=== PATIENT | female | born 1965 | race African-American/Black ===

== ENCOUNTER 2019-04-29 16:13 | Outpatient (CLI) | payer OTHER, SELFPAY ==
--- NOTE | ~2019-04-29 | MM_ITS ---
EXAMINATION: MM screening stormy BI w giovanni HISTORY: Screening mammogram TECHNIQUE: Craniocaudal and mediolateral oblique 3-D tomosynthesis images were obtained and synthetic 2-D images were generated. CAD analysis was submitted and interpreted. COMPARISON: No prior mammogram is available for comparison at this institution. BREAST PARENCHYMAL COMPOSITION: There are scattered areas of fibroglandular density. FINDINGS: RIGHT BREAST: There is a possible mass in the subareolar aspect of the breast. LEFT BREAST: A mass is present in the middle/posterior third of the upper outer quadrant of the breas t 8.5 cm from the nipple. On the craniocaudal view, there is an adjacent asymmetry. IMPRESSION: 1. Bilateral breast findings as described above. 2. Additional mammographic views and possible breast ultrasound are recommended. BI-RADS Category 0: Incomplete: Needs additional imaging evaluation. Reviewed, dictated and finalized at location A. GER RECRUITING IMPRESSION: 1. Bilateral breast findings as described above. 2. Additional mammographic views and possible breast ultrasound are recommended . BI-RADS Category 0: Incomplete: Needs additional imaging evaluation.
== END 2019-04-29 16:14 | disposition home or self-care (01) ==
LOC: ANHIMG 16:28
PROVIDERS: PCP Physician Assistant; Visit Provider Physician Assistant
DX: Z12.31 Encounter for screening mammogram for malignant neoplasm of breast (principal); R92.8 Other abnormal and inconclusive findings on diagnostic imaging of breast
CPT/HCPCS: 77063; 77067

== ENCOUNTER 2019-05-24 12:40 | Outpatient (CLI) | payer OTHER, SELFPAY ==
--- NOTE | ~2019-05-24 | MMUS_ITS ---
EXAMINATION: MM diagnostic mammo BI, US breast BI limited HISTORY: Follow-up breast asymmetries TECHNIQUE: Additional 3-D tomosynthesis images of the breasts were performed and synthetic 2-D images were generated. CAD analysis was submitted and interpreted. High resolution bilateral breast ultraso und was performed. COMPARISON: 04/29/2019 FINDINGS: MAMMOGRAPHIC FINDINGS: Breast composed of scattered areas of fibroglandular density. There are no suspicious masses, calcifi cations or architectural distortion in the right breast to suggest malignancy. There is a mass measur ing 1.5 cm with circumscribed margins in the upper outer quadrant of the left breast. There are assoc iated calcifications. ULTRASOUND: Right breast ultrasound: In the subareolar location of the right breast there is an irregular shaped hypoechoic mass with helder e angular margins measuring 12 x 7 x 8 mm. There is mixed posterior attenuation. No internal vascular ity. Left breast ultrasound: At 12:00, 2 cm from the nipple, there is an oval hypoechoic mass measuring 4 x 3 x 3 mm, likely a marysol ign complicated cyst. In the subareolar location of the left breast there is an oval hypoechoic mass with circumscribed margins, parallel orientation, no significant posterior features or internal vascu larity measuring 7 x 7 x 4 mm, likely benign. IMPRESSION: 1. Irregular shaped 12 mm right breast mass in the subareolar location. Ultrasound-guided right breas t biopsy recommended. BI-RADS Category 4. 2. Probable benign left breast masses no definite sonographic correlate to mammographic abnormality i n the left breast. Six-month follow-up diagnostic left mammogram and ultrasound recommended. BI-RADS Category 3, likely benign. Reviewed, dictated and finalized at location A. IMPRESSION: 1. Irregular shaped 12 mm right breast mass in the subareolar location. Ultraso und-guided right breast biopsy recommended. BI-RADS Category 4. 2. Probable benign left breast masses no definite sonographic correlate to mamm ographic abnormality in the left breast. Six-month follow-up diagnostic left ma mmogram and ultrasound recommended. BI-RADS Category 3, likely benign.
== END 2019-05-24 12:41 | disposition home or self-care (01) ==
LOC: ANHIMG 12:43
PROVIDERS: PCP Physician Assistant; Visit Provider Physician Assistant
DX: R92.8 Other abnormal and inconclusive findings on diagnostic imaging of breast (principal)
CPT/HCPCS: 76642; 77066

== ENCOUNTER 2023-05-15 22:15 | Emergency (ER) | payer SELFPAY ==
[2023-05-15 22:18] VITALS: BP 131/103; PULSE 79; RESP 16; TEMP 36.1; O2SAT 98
--- NOTE | 2023-05-16 00:32 | PC.NURSE ---
Pt LWBS due to wait. Pt educated on risks/benefits of leaving. Pt instructed by this RN to follow up w pcp or come back if sx worsen.
== END 2023-05-16 01:20 | disposition left against medical advice (07) ==
PROVIDERS: PCP Physician Assistant
DX: I10 Essential (primary) hypertension (principal)
CPT/HCPCS: 99199

== ENCOUNTER 2023-11-21 09:50 | Outpatient (CLI) | payer BC, SELFPAY ==
--- NOTE | ~2023-11-21 | MM_ITS ---
EXAMINATION: MM screening stormy BI w giovanni HISTORY: Screening mammogram TECHNIQUE: Craniocaudal and mediolateral oblique 3-D tomosynthesis images were obtained and synthetic 2-D images were generated. CAD analysis was submitted and interpreted. COMPARISON: 04/29/2019 BREAST PARENCHYMAL COMPOSITION:Not Dense. There are scattered areas of fibroglandular density. FINDINGS: Stable mass with focal calcifications at the upper, outer left breast. Stable additional be nign lymph node at the posterior upper, outer left breast. No suspicious mass, calcification, or arch itectural distortion are identified in either breast to suggest malignancy. There has been no suspici ous interval change. IMPRESSION: No mammographic evidence of malignancy. Recommend routine screening mammography in one year. BI-RADS Category 2: Benign finding(s). Reviewed, dictated and finalized at [facility].
== END 2023-11-21 09:51 | disposition home or self-care (01) ==
LOC: ANHIMG 09:53
PROVIDERS: PCP Physician Assistant; Visit Provider Physician Assistant
DX: Z12.31 Encounter for screening mammogram for malignant neoplasm of breast (principal)
CPT/HCPCS: 77063; 77067

== ENCOUNTER 2025-02-04 10:39 | Outpatient (CLI) | payer BC, SELFPAY ==
--- NOTE | ~2025-02-04 | MM_ITS ---
EXAMINATION: MM screening stormy BI w giovanni HISTORY: Screening. TECHNIQUE: Craniocaudal and mediolateral oblique 3-D tomosynthesis images were obtained and synthetic 2-D images were generated. CAD analysis was submitted and interpreted. COMPARISON: 2023 and 2019 BREAST PARENCHYMAL COMPOSITION: Not Dense: There are scattered areas of fibroglandular tissue. FINDINGS: A circumscribed benign-appearing mass, with coarse calcifications, in the left breast is stable. No suspicious masses are seen. There are no suspicious calcifications. No unexplained architectural distortion is seen. There are no skin or nipple abnormalities identified. There is no adenopathy seen on the images submitted. IMPRESSION: No mammographic evidence to suggest malignancy is seen. The patient may return to screening mammography as per ACR guidelines. BI-RADS: 2 - Benign. Reviewed, dictated and finalized at location A. TER HELPER
--- OUTSIDE RECORDS SUMMARY | 2025-02-04 10:44 | XMS_ITS | Encounter Summary ---
Author Organization [facility] Address [address] [place] [address] Care Team Providers Care Legal Aid Name Role Phone Bobby Cook MD Primary Care Provider [phone] Encounter Details Date Type Department Care Team (Latest Contact Info) Description 01/13/2018 Abstract [facility] Justo Díaz MD Social History Tobacco Use Types Packs/Day Years Used Date Smoking Tobacco: Never Assessed Comments Unknown Sex and Gender Information Value Date Recorded Sex Assigned at Female 01/27/2025 2:49 PM MAINTENANCE WORK[employer] Legal Sex Female 11:16 PM [employer]INTENANCE [employer] Gender Identity Not on file Sexual Orientation Not on file documented as of this encounter Plan of Treatment Upcoming Encounters Date Type Department Care Team (Late st Contact Info) Description 03/17/2025 9:00 AM MAINTENANCE WORK[employer] [facility], [address] [address] Henry Fox MD 3 [facility] [place] [address] [place] [phone] 03/17/2025 1:00 PM MAINTENANCE [employer] Office Visit [facility] Family & Internal Medicine [address] [phone] Bobby Cook MD [address] [place] [phone] documented as of this encounter Visit Diagnoses Not on filedocumented in this encounter Care Teams Legal Aid Relationship Specialty Start Date End Date Bobby Cook MD [address] [place] [id number] PCP - General INTERNAL MEDICINE 01/27/25 documented as of this encounter
--- OUTSIDE RECORDS SUMMARY | 2025-02-04 10:44 | XMS_ITS | Clinical Summary ---
Author Organization [facility] Address [address] [place] [address] Care Team Providers Care Notch Grinder Name Role Phone Bobby Cook MD Primary Care Provider [phone] Allergies No known active allergies Medications amLODIPine (NORVASC) 10 MG tablet Take 1 tablet (10 mg total) by mouth daily. Active atorvastatin (LIPITOR) 20 MG tablet Take 1 tablet every day by oral route at bedtime for 90 days. 10/28/2024 Active vitamin E (E 1000) 450 MG (1000 UT) Cap Take 1 capsule (1,000 Units total) by mouth daily. Active ferrous sulfate EC 325 (65 Fe) MG tablet Take 1 tablet (325 mg total) by mouth daily. Active Multiple Vitamin (MULTIVITAMIN ADULT OR) Take 1 tablet by mouth daily. Active Active Problems Problem Noted Date Diagnosed Date Primary hypertension 08/28/2023 Prediabetes 01/16/2021 Hypothyroidism 01/09/2020 Anemia 07/28/2012 Encounters Date Type Department Care Team Description 01/31/2025 Telephone [facility], [address] [address] Fatou Gilbert, RMA Consult 01/28/2025 MyChart Message Enc [facility] Medical [facility] Family & Internal Medicine [address] [phone] Bobby Cook MD In network for MRI request 01/27/2025 3:00 PM NOODLE MAKER Office Visit [facility] Family & Internal Medicine [address] [phone] Bobby Cook MD Establish Care; Insomnia NOS (Pt c/o difficulty sleeping and ice pick headaches, feeling very tired all of the time, and racing brain at bedtime, and forgetfulness at times. ); Nocturia (Pt c/o peeing frequently at night and was told she is prediabetic. ) 01/27/2025 Scan HEALTH INFO [facility] Scanned, [facility] 01/27/2025 Travel 11/22/2024 Telephone [facility] Medical Group Family & Internal Medicine [address] [phone] Bobby Cook MD Information from Last 3 Months Family History Medical History Relation Comments Hypertension Brother 1 Hypertension Father Lung Cancer Mother Stomach cancer Paternal Grandfather Cancer Sister 1 metastatic cance r Relation Status Comments Brother 1 Alive Brother 2 Alive Father Alive Maternal Grandfather Maternal Grandmother Mother Paternal Grandfather Paternal Grandmother Sister 1 Sister 2 Alive Sister 3 Alive Social History Tobacco Use Types Packs/Day Years Used Date Smoking Tobacco: Never Smokeless Tobacco: Never Tobacco Cessation:Counseling Given: Not Answered Alcohol Use Standard Drinks/Week Comments Not Currently 0 (1 standard drink = 0.6 oz pur e alcohol) PHQ-2 Answer Date Recorded Patient Health Questionnaire-2 Score 1 01/27/2025 Comments No Sex and Gender Information Value Date Recorded Sex Assigned at Female 01/27/2025 2:49 PM NOODLE MAKER Legal Sex Female 11:16 PM NOODLE MAKER Gender Identity Not on file Sexual Orientation Not on file Last Filed Vital Signs Vital Sign Reading Time Taken Comments Blood Pressure 126/80 01/27/2025 3:10 PM NOODLE MAKER Pulse 87 01/27/2025 3:10 PM NOODLE MAKER Temperature 36.1 C (97 F) 01/27/2025 3:10 PM NOODLE MAKER Respiratory Rate 18 01/27/2025 3:10 PM NOODLE MAKER Oxygen Saturation 98% 01/27/2025 3:10 PM NOODLE MAKER Inhaled Oxygen Concentration - - Weight 103 kg (227 lb) 01/27/2025 3:10 PM NOODLE MAKER Height 160 cm (5' 3) 01/27/2025 3:10 PM NOODLE MAKER Body Mass Index 40.21 01/27/2025 3:10 PM NOODLE MAKER Plan of Treatment Upcoming Encounters Date Type Department Care Team (Late st Contact Info) Description 03/17/2025 9:00 AM NOODLE MAKER Office Visit [facility], [address] [place] [address] Henry Fox MD 3 [facility] [place] [address] [place] [phone] 03/17/2025 1:00 PM NOODLE MAKER Office Visit [facility] Family & Internal Medicine - [place] [address] [place] [phone] Bobby Cook MD [address] [place] [phone] Health Maintenance Due Date Last Done Comments Colorectal Cancer Screening Colonoscopy (10 Years) 1967 Annual Physical 12/18/1970 Hepatitis C 12/18/1985 Hepatitis B Vaccines (1 of 3 - 19+ 3-dose series) 12/18/1986 Mammogram Screening 2007 COVID-19 Vaccine (2024-2 6 season) 2024 06/19/2020, 05/23/2020 Influenza Adult (#1) 2025 Postpon ed from 12/08/2024 (Patient Refused) DTaP, Tdap and Td Vaccines ( 3 - Td or Tdap) 07/22/2034 07/22/2024, 07/28/2012 Pneumococcal Vaccine: 50+ Years Completed 07/22/2024 Zoster Vaccines Completed 08/29/2024, 11/21/2023 PHQ-2 (Physician [place]) Completed 01/27/2025 Hepatitis A Vaccines Aged Out No long er eligible based on patient's age to complete this topic Meningococcal B Vaccine Aged Out No l onger eligible based on patient's age to complete this topic Meningococcal Vaccine Aged Out No jj lindy eligible based on patient's age to complete this topic RSV Immunizations Under 20 Months Aged Out No longer eligible b ased on patient's age to [place] [address] [facility] Care Teams Notch Grinder Relationship Specialty Start Date End Date Bobby Cook MD [address] [place] [id number] PCP - General INTERNAL MEDICINE 01/27/25
--- OUTSIDE RECORDS SUMMARY | 2025-02-04 10:44 | XMS_ITS | Data Portability ---
Author Organization Ritika MORELAND Address [address] [facility] [place] [address] Care Team Providers Care Director Dietetics Department Name Role Phone DYLANJAMESON Primary Care Provider [phone] Assessment Encounter Date Assessment Date Assessment LastModified by Organization Details LastModified Time 08/28/2023 08/28/2023 denies depression Not available 08/28/2023 13:11:10 Plan of Treatment Reminders Order Date Submit Date Provider Last Modified By Organization Details Last Modified Time Details Appointments None recorded. Lab CMP, serum or plasma 2024 025 [facility], [address] [facility], [place] [address], [place], [address], 5 10:25:35 CBC w/ auto diff 2024 025 [facility], [address] [place] [address], [facility] [address], [place], [address], 5 10:25:37 lipid panel, serum 2024 025 [facility], [address] [facility], [address], [place], [address], 5 10:25:34 TSH + free T4, serum 2024 025 [facility], [address] [facility], [facility] [address], [place], [address], 10:25:33 HbA1c (hemoglobin A1c), blood 2024 025 [facility], [address] [facility], [address], [place], [address], 10:25:36 Referral None recorded. Procedures None recorded. Surgeries None recorded. Imaging MAMMO, screening, bilateral [address] (Imaging), [address] [place] [address], [address], 08:15:10 MAMMO, screening, bilateral [address] (Imaging), [address] [place] [address], [address], 07:54:17 Medication Orders amlodipine 10 mg tablet 2024 025 [id number], [address], [place], [place], [id number], 16:21:42 Patient TargetsNo targets recorded. Patient Instructions Encounter Date Encounter Id Patient Instructions Last Modified By Organization Details Last Modified Time 08/28/2023 [id number] A healthy lifestyle: care instructions [place] [id number] Not available 08/28/2023 13:11:19 06/30/2024 [id number] A healthy lifestyle: [facility] Not available 07/05/2024 14:36:11 Reason for Referral None Reported. Results Created Date Observation Date Name Description Value Unit Range Abnormal Flag Note LastModifiedBy Organization Detail LastModifiedTime 07/01/1907/03/2024 TSH+F REE T4 TSH 4.880 uIU/m L 0.450- 4.500 above high normal Not Available [facility] ([facility] [place] [facility] [address] [facility], [place], [address], 07/03/2024 10:25:33 07/01/1907/03/2024 TSH+F REE T4 T4,free(dire ct) 1.08 NG/dL 0.82-1 .77 Not Available [facility] ([facility] [place] [place] [facility] [address] [place], [address], 07/03/2024 10:25:33 07/01/19 25 07/03/2024 LIPID PANEL cholesterol, total 164 mg/dL 100-19 9 Not Available [facility] ([facility] [place] [place] [facility] [address] [place], [address], 07/03/2024 10:25:34 07/01/19 25 07/03/2024 LIPID PANEL triglyceride s 112 mg/dL 0-149 Not Available [facility] ([facility] [place] [place] [facility] [address] [place], [address], 07/03/2024 10:25:34 07/01/19 25 07/03/2024 LIPID PANEL HDL cholesterol 56 mg/dL >39 Not Available [facility] [place] [place] [facility] [address] [place], [address], 07/03/2024 10:25:34 07/01/19 25 07/03/2024 LIPID PANEL VLDL cholesterol asad 20 mg/dL 5-40 Not Available [facility] ([facility] [place] [place] [facility] [address] [place], [address], 07/03/2024 10:25:34 07/01/19 25 07/03/2024 LIPID PANEL LDL chol calc ([facility]) 88 mg/dL 0-99 Not Available [facility] [place] [place] [facility] [address] [place], [address], 07/03/2024 10:25:34 07/01/19 25 07/03/2024 COMP. METAB OLIC PANEL (14) glucose 102 mg/dL 70-99 above high normal Not Available [facility] ([facility] [place] [place] [facility] [address] [place], [address], 07/03/2024 10:25:35 07/01/19 25 07/03/2024 COMP. METAB OLIC PANEL (14) BUN 13 mg/dL 6-24 Not Available [facility] ([facility] [place] [place] [facility] [address] [place], [address], 07/03/2024 10:25:35 07/01/19 25 07/03/2024 COMP. METAB OLIC PANEL (14) creatinine 0.81 mg/dL 0.57-1 .00 Not Available [facility] ([facility] [place] [place] [facility] [address] [facility], [place], [address], 07/03/2024 10:25:35 07/01/19 25 07/03/2024 COMP. METAB OLIC PANEL (14) eGFR 85 mL/mi n/1.7 3 >59 Not Available [facility] ([facility] [place] [place] [facility] [address] [place], [address], 07/03/2024 10:25:35 07/01/19 25 07/03/2024 COMP. METAB OLIC PANEL (14) BUN/creatini ne ratio 16 9-23 Not Available [facility] ([facility] [place] [place] [facility] [address] [place], [address], 07/03/2024 10:25:35 07/01/19 25 07/03/2024 COMP. METAB OLIC PANEL (14) sodium 141 mmol/ L 134-14 4 Not Available [facility] ([facility] [place] [place] [facility] [address] [place], [address], 07/03/2024 10:25:35 07/01/19 25 07/03/2024 COMP. METAB OLIC PANEL (14) potassium 4.1 mmol/ L 3.5-5. 2 Not Available [facility] ([facility] [place] [place] [facility] [address] [place], [address], 07/03/2024 10:25:35 07/01/19 25 07/03/2024 COMP. METAB OLIC PANEL (14) chloride 103 mmol/ L 96-106 Not Available [facility] ([facility] [place] [place] [facility] [address] [facility] [place], [address], 07/03/2024 10:25:35 07/01/19 25 07/03/2024 COMP. METAB OLIC PANEL (14) carbon dioxide, total 22 mmol/ L 20-29 Not Available [facility] ([facility] [place] [place] [facility] [address] [facility] [place], [address], 07/03/2024 10:25:35 07/01/19 25 07/03/2024 COMP. METAB OLIC PANEL (14) calcium 9.9 mg/dL 8.7-10 .2 Not Available [facility] ([facility] [place] [place] [facility] [address] [facility], [place], [address], 07/03/2024 10:25:35 07/01/19 25 07/03/2024 COMP. METAB OLIC PANEL (14) protein, total 6.9 g/dL 6.0-8. 5 Not Available [facility] ([facility] [place] [place] [facility] [address] [place], [address], 07/03/2024 10:25:35 07/01/19 25 07/03/2024 COMP. METAB OLIC PANEL (14) albumin 4.3 g/dL 3.8-4. 9 Not Available [facility] ([facility] [place] [place] [facility] [address] [place], [address], 07/03/2024 10:25:35 07/01/19 25 07/03/2024 COMP. METAB OLIC PANEL (14) globulin, total 2.6 g/dL 1.5-4. 5 Not Available [facility] ([facility] [place] [place] [facility] [address] [place], [address], 07/03/2024 10:25:35 07/01/19 25 07/03/2024 COMP. METAB OLIC PANEL (14) bilirubin, total 0.3 mg/dL 0.0-1. 2 Not Available [facility] ([facility] [place] [place] [facility] [address] [place], [address], 07/03/2024 10:25:35 07/01/19 25 07/03/2024 COMP. METAB OLIC PANEL (14) alkaline phosphatase 127 IU/L 44-121 above high normal Not Available [facility] ([facility] [place] [place] [facility] [address] [place], [address], 07/03/2024 10:25:35 07/01/19 25 07/03/2024 COMP. METAB OLIC PANEL (14) AST (SGOT) 22 IU/L 0-40 Not Available [facility] ([facility] [place] [place] [facility] [address] [place], [address], 07/03/2024 10:25:35 07/01/19 25 07/03/2024 COMP. METAB OLIC PANEL (14) ALT (SGPT) 29 IU/L 0-32 Not Available [facility] ([facility] [place] [place] [facility] [address] [place], [address], 07/03/2024 10:25:35 07/01/19 25 07/03/2024 HEMOG LOBIN A1C hemoglobin A1C 6.3 % 4.8-5. 6 above high normal Predi abete s: 5.7 - 6.4 Diabe thony: >6.4 Glyce katherine contr ol for adult s with diabe thony: <7.0 Not Available [facility] ([facility] [place] [place] [facility] [address] [place], [address], 07/03/2024 10:25:36 07/01/19 25 07/03/2024 CBC WITH DIFFE RENTI AL/PL ATELE T WBC 5.8 x10e3 /uL 3.4-10 .8 Not Available [facility] ([facility] [place] [place] [facility] [address] [place], [address], 07/03/2024 10:25:37 07/01/19 25 07/03/2024 CBC WITH DIFFE RENTI AL/PL ATELE T RBC 4.82 x10e6 /uL 3.77-5 .28 Not Available [facility] ([facility] [place] [place] [facility] [address] [place], [address], 07/03/2024 10:25:37 07/01/19 25 07/03/2024 CBC WITH DIFFE RENTI AL/PL ATELE T hemoglobin 13.9 g/dL 11.1-1 5.9 Not Available [facility] ([facility] [place] [place] [facility] [address] [place], [address], 07/03/2024 10:25:37 07/01/1907/03/2024 CBC WITH DIFFE RENTI AL/PL ATELE T hematocrit 43.0 % 34.0-4 6.6 Not Available [facility] ([facility] [place] [place] [facility] [address] [place], [address], 07/03/2024 10:25:37 07/01/19 25 07/03/2024 CBC WITH DIFFE RENTI AL/PL ATELE T MCV 89 fL 79-97 Not Available [facility] ([facility] [place] [place] [facility] [address] [place], [address], 07/03/2024 10:25:37 07/01/19 25 07/03/2024 CBC WITH DIFFE RENTI AL/PL ATELE T MCH 28.8 pg 26.6-3 3.0 Not Available [facility] ([facility] [place] [place] [facility] [address] [place], [address], 07/03/2024 10:25:37 07/01/19 25 07/03/2024 CBC WITH DIFFE RENTI AL/PL ATELE T MCHC 32.3 g/dL 31.5-3 5.7 Not Available [facility] ([facility] [place] [place] [facility] [address] [place], [address], 07/03/2024 10:25:37 07/01/19 25 07/03/2024 CBC WITH DIFFE RENTI AL/PL ATELE T RDW 14.0 % 11.7-1 5.4 Not Available [facility] ([facility] [place] [place] [facility] [address] [facility], [place], [address], 07/03/2024 10:25:37 07/01/19 25 07/03/2024 CBC WITH DIFFE RENTI AL/PL ATELE T platelets 222 x10e3 /uL 150-45 0 Not Available [facility] ([facility] [place] [place] [facility] [address] [facility], [place], [address], 07/03/2024 10:25:37 07/01/19 25 07/03/2024 CBC WITH DIFFE RENTI AL/PL ATELE T neutrophils 46 % notest ab. Not Available [facility] ([facility] [place] [place] [facility] [address] [facility], [place], [address], 07/03/2024 10:25:37 07/01/19 25 07/03/2024 CBC WITH DIFFE RENTI AL/PL ATELE T lymphs 40 % notest ab. Not Available [facility] ([facility] [place] [place] [facility] [address] [facility], [place], [address], 07/03/2024 10:25:37 07/01/19 25 07/03/2024 CBC WITH DIFFE RENTI AL/PL ATELE T monocytes 11 % notest ab. Not Available [facility] ([facility] [place] [place] [facility] [address] [facility], [place], [address], 07/03/2024 10:25:37 07/01/19 25 07/03/2024 CBC WITH DIFFE RENTI AL/PL ATELE T eos 2 % notest ab. Not Available [facility] ([facility] [place] [place] [facility] [address] [facility], [place], [address], 07/03/2024 10:25:37 07/01/19 25 07/03/2024 CBC WITH DIFFE RENTI AL/PL ATELE T basos 1 % notest ab. Not Available [facility] ([facility] [place] [place] [facility] [address] [facility], [place], [address], 07/03/2024 10:25:37 07/01/19 25 07/03/2024 CBC WITH DIFFE RENTI AL/PL ATELE T neutrophils (absolute) 2.7 x10e3 /uL 1.4-7. 0 Not Available [facility] ([facility] [place] [place] [facility] [address] [facility], [place], [address], 07/03/2024 10:25:37 07/01/19 25 07/03/2024 CBC WITH DIFFE RENTI AL/PL ATELE T lymphs (absolute) 2.3 x10e3 /uL 0.7-3. 1 Not Available [facility] ([facility] [place] [place] [facility] [address] [facility], [place], [address], 07/03/2024 10:25:37 07/01/19 25 07/03/2024 CBC WITH DIFFE RENTI AL/PL ATELE T monocytes(ab solute) 0.7 x10e3 /uL 0.1-0. 9 Not Available [facility] ([facility] [place] [place] [facility] [address] [facility], [place], [address], 07/03/2024 10:25:37 07/01/19 25 07/03/2024 CBC WITH DIFFE RENTI AL/PL ATELE T eos (absolute) 0.1 x10e3 /uL 0.0-0. 4 Not Available [facility] ([facility] [place] [place] [facility] [address] [facility], [place], [address], 07/03/2024 10:25:37 07/01/19 25 07/03/2024 CBC WITH DIFFE RENTI AL/PL ATELE T baso (absolute) 0.1 x10e3 /uL 0.0-0. 2 Not Available [facility] ([facility] [place] [place] [facility] [address] [facility], [place], [address], 07/03/2024 10:25:37 07/01/19 25 07/03/2024 CBC WITH DIFFE RENTI AL/PL ATELE T immature granulocytes 0 % notest ab. Not Available [facility] ([facility] [place] [place] [facility] [address] [facility], [place], [address], 07/03/2024 10:25:37 07/01/19 25 07/03/2024 CBC WITH DIFFE RENTI AL/PL ATELE T immature grans (abs) 0.0 x10e3 /uL 0.0-0. 1 Not Available [facility] ([facility] [place] [place] [facility] [address] [facility], [place], [address], 07/03/2024 10:25:37 11/21/19 24 11/21/2023 MAMMO , scree day, bilat eral No observ ation record ed. [address] (Imaging) [address] [place] [address] [address] [facility], [place], [address], 12/01/2023 15:51:18 11/21/19 24 11/21/2023 MAMMO , scree day, bilat eral No observ ation record ed. [address] [place] [address], [address], 11/24/2023 08:10:20 Result Notes None recorded. Problems Name Problem SNOMED Code Status Onset Date Resolution Date Notes Provider Name and Address Organization Details Recorded Time Pelvic mass 25296878 Active 2019 [facility] Attn: Kallie richey,[address] [place], [address], [place] [facility] 0 13:41:32 Uterine leiomyoma 76585995 Active 2019 [facility] Attn: Kallie richey,[address] [place], [address], [place] [facility] 0 13:36:02 Body mass index 30+ - obesity 716915771 Active 2019 BRITTA RIZZO NP [address] [place], [address], [place] [facility] 0 13:29:36 Hypothyroi dism 28607083 Active 2019 BRITTA RIZZO NP [address] [place], [address], [place] [facility] 0 14:21:09 Diverticul osis of colon 961034601 Active 2020 [facility] Attn: Kallie richey,[address] [place], [place], [address] [place] [address] 2, [place] [facility] 1 14:23:20 Internal hemorrhoid s 91771421 Active 2020 [facility] Attn: Kallie richey,[address] [place], [place], [address] [place] [address] 2, [place] [facility] 1 14:23:28 Screening for malignant neoplasm of colon Active 2020 next colonoscop y April 2030 BRITTA RIZZO NP [address], [place], [address], [place] [facility] 1 17:41:32 Prediabete s 668489074 Active 2020 [facility] Attn: Kallie richey,[address] [place], [place], [address] [place] [address] 2, [place] [facility] 1 17:42:45 Elevated blood-pres sure reading without diagnosis of hypertensi on 531156124 Active 2023 [facility] Attn: Kallie richey,[address] [place], [address], [place] [facility] 4 10:06:45 Essential hypertensi on 93579975 Active 2023 [facility] Attn: Kallie richey,[address] [place], [address], [place] [facility] 4 13:10:53 Problem Notes None recorded. Procedures Surgical History Date Name Laterality Status Provider Name and Address Organization Details Recorded Time 01/09/20 laparoscopic total hysterectomy completed [facility] Attn: Accounting, [address] [facility], [place], [address], [facility] 08/28/2023 12:53:18 04/06/19 20 Date of Last Pap Smear completed Magda Euceda MA [facility] 04/22/2019 12:43:20 03/10/19 13 hemorrhoidectomy completed Suresh Jordan MA [facility] 04/06/2019 11:56:07 colonoscopy completed Suresh Jordan MA [facility] 04/06/2019 11:56:16 procedure on ear completed BRITTA HELM, [employer] [address] [place], [address], [facility] 01/10/2020 14:24:52 Imaging Results None recorded. Procedure Notes None recorded. Medical Equipment None Reported. Allergies No known drug allergies Medications Name Sig Start Date Stop Date Status Note LastModified by Organization Details LastModified Time atorvastati n 20 mg tablet Take 1 tablet every day by oral route at bedtime for 90 days. 2024 active Not Available Not Available Not Avai lable cetirizine 10 mg tablet Take 1 tablet every day by oral route for 30 days. 01/09 completed Not Available Not Available Not Available amlodipine 5 mg tablet TAKE 1 TABLET BY MOUTH EVERY DAY 10/28 completed Not Available Not Available Not Available levothyroxi ne 25 mcg tablet TAKE 1 TABLET BY MOUTH ONCE DAILY BEFORE FIRST MEAL 01/17 completed Not Available Not Available Not Available amlodipine 10 mg tablet TAKE 1 TABLET BY MOUTH EVERY DAY active Not Available Not Available No t Available hydrocodone 7.5 mg-acetamin ophen 325 mg tablet TAKE 1 TABLET BY MOUTH EVERY 4 TO 6 HOURS NEEDED FOR PAIN 01/17 completed Not Available Not Available Not Available pravastatin 20 mg tablet TAKE 1 TABLET BY MOUTH EVERY DAY 08/27 completed Not Available Not Available Not Available ergocalcife rol (vitamin D2) 1,250 mcg (50,000 unit) capsule TAKE 1 CAPSULE BY MOUTH EVERY WEEK active Not Available Not Available No t Available ibuprofen 600 mg tablet PLEASE SEE ATTACHED FOR DETAILED DIRECTION S active Not Available Not Available No t Available iron active Not Available Not Availa ble Not Available calcium 600 mg (as carbonate)- vitamin D3 10 mcg (400 unit) tablet Take 1 tablet every day by oral route for 90 days. 2021 active Not Available Not Available Not Avai lable Gavilyte-C 240 gram-22.72 gram-6.72 gram-5.84 gram oral solution BEGINNING AT 5 00 PM THE NIGHT BEFORE THE COLONOSCO PY, DRINK 8 OUNCES EVERY 15 MINUTES UNTIL GONE. 01/17 completed Not Available Not Available Not Available COVID-19 test specimen collection TEST DIRECTED TODAY active Not Available Not Available No t Available Vitals Date Recorded Body height Body mass index (BMI) Body weight Heart rate Oxygen saturation Systolic And Diastolic Provider Name and Address Organization Details Last Updated DateTime 5 160.02 cm 40 kg/m2 055360. 88 g 95 /min 97 % 156/90 mm[Hg] Dary Robertson MA [facility] 5 15:44:15 Date Recorded Body height Body mass index (BMI) Body weight Heart rate Oxygen saturation Systolic And Diastolic Provider Name and Address Organization Details Last Updated DateTime 4 160.02 cm 38.3 kg/m2 11567.3 5 g 73 /min 99 % 150/82 mm[Hg] Dary Robertson MA [facility] 4 12:22:57 Date Recorded Body height Body mass index (BMI) Body weight Heart rate Oxygen saturation Systolic And Diastolic Provider Name and Address Organization Details Last Updated DateTime 5 160.02 cm 39.5 kg/m2 889375. 1 g 67 /min 98 % 124/83 mm[Hg] Dary Robertson MA [facility] 5 10:57:54 Social History Question Answer Notes LastModified by Organizat ion Details LastModified Time Tobacco Smoking Status Never Smoker Suresh Jordan MA [facility], [facility] 04/06/2019 11:54:14 Do You Have An Advance Directive? No Information not available 04/06/2019 What Is Your Level Of Caffeine Consumption? None Information not available 11/29/2019 How Much Tobacco Do You Chew? None Information not available 04/06/2019 What Type Of Diet Are You Following? REGULAR Information not available 04/06/2019 Which Illicit Or Recreational Drugs Have You Used? Denies rloar Information not available 01/10/2020 Education 2 Year College Information not available 04/06/2019 Are There Any Guns Present In Your Home? No Information not available 04/06/2019 Hard Of Hearing Or Deaf In One Or Both Ears? No Information not available 04/06/2019 Legally Blind In One Or Both Eyes? No Information no t available 04/06/2019 Live Alone Or With Others? With Others Information not available 11/29/2019 Marital Status Single Informatio n not available 04/06/2019 What Was The Date Of Your Most Recent Tobacco Screening? 10/28/2024 Information not available 10/28/2024 How Many Children Do You Have? 0 Information not available 11/29/2019 Performs Monthly Self-breast Exam? No Information no t available 04/06/2019 Seat Belts Used Routinely Yes Information not available 04/06/2019 Smoke Alarm In Home Yes Information not available 04/06/2019 Do You Have Smoke And Carbon Monoxide Detectors In Your Home? Yes Information not available 06/13/2021 Are You Passively Exposed To Smoke? No Information no t available 06/13/2021 How Much Tobacco Do You Smoke? No Information not available 04/06/2019 General Stress Level High Information not available 11/29/2019 Do You Use Sunscreen Routinely? No Information not available 04/06/2019 Has Tobacco Cessation Counseling Been Provided? Yes Information not available 06/13/2021 On What Date Was Tobacco Cessation Counseling Provided? 10/28/2024 Information not available 10/28/2024 Sex: Unknown Functional Status Question Answer Note LastModified by Organizat ion Details LastModified Time Do you use any illicit or recreational drugs? No Information not available 06/13/2021 Do you or have you ever used any other forms of tobacco or nicotine? No Information not available 06/13/2021 What is your level of alcohol consumption? Occasional Information not available 04/06/2019 Do you or have you ever used smokeless tobacco? Never used smokeless tobacco Information not available 04/06/2019 Are you able to care for yourself independently? Yes Information not available 11/29/2019 Do you or have you ever used e-cigarettes or vape? Never used electronic cigarettes Information not available 04/06/2019 What is your exercise level? None Information not available 04/06/2019 Mental Status None recorded. Family History Relationship Description Onset Age of this Age Resolved Age Notes LastModified by Organization Details LastModified Time Brother Hypertensive disorder [email or web address] Not available 2019 11:53:48 Father Hypertensive disorder rloar Not available 2019 14:21:39 Mother Malignant neoplasm of lung rloar Not available 2019 14:21:55 Sister Multiple malignancy 63 2023 with cancer all over they do not know where it starte d Not available 10/28/2024 11:19:48 Medical History Condition Response Coronary Artery Disease N Other N Gout N High Blood Pressure N Atrial Fibrillation N Colon Cancer N Kidney Stones N Hyperthyroidism N COPD N Blood Clots N Hypothyroidism Y Depression Y Diverticulitis/Diverticulosis N Anxiety Disorder N Muscle, Joint, or Bone Problems N Arthritis N Acid Reflux (GERD) N Cancer N Stroke N High Cholesterol N Liver Disease N Headaches N Kidney Disease N Thyroid Problems N Kidney or Bladder Problems N GI Problems N Skin Problems N Osteoporosis/Osteopenia N Anemia Y Colon Polyps N Heart Attack (MT) N Diabetes N Bleeding Disorder N Seizures/Epilepsy N Tuberculosis N Hyperlipidemia N Asthma N Allergies N Sleep Apnea N GERD/Reflux N Hepatitis N Cirrhosis N Heart Disease N Hypertension N Osteoporosis N Heart Failure N Gynecological History Statement/Question Response Flow Moderate Date of Last Mammogram Frequency of Cycle (Q days) 28 Date of LMP 11/10/2019 Menses Monthly Y STIs/STDs N Date of Last Pap Smear 04/06/2019 Duration of Flow (days) 21 Current Control Method Hysterectom y Age at Menarche 13 LMP Definite Obstetrics History GPAL:G 0 P 0 0 0 0 Type Value Multiple Births 0 Full Term 0 Induced 0 Spontaneous 0 Premature 0 Living 0 Ectopics 0 Total 0 Immunizations Vaccine Type Date Status Note Provider Nam e and Address Organization Details Recorded Time COVID-19, mRNA, LNP-S, PF, 30 mcg/0.3 mL dose 1 completed Dary Robertson [place], [place] [facility] 06/13/2021 17:17:53 COVID-19, mRNA, LNP-S, PF, 30 mcg/0.3 mL dose 1 completed Dary Robertson [place] marie, [place] [facility] 06/13/2021 17:18:09 zoster recombinant 4 completed Not Available [facility] 10/28/2024 10:46:36 zoster recombinant 5 completed Not Available [facility] 10/28/2024 10:46:36 Pneumococcal conjugate PCV20, polysaccharide [id number] conjugate, adjuvant, PF 5 completed DAYO [place] [facility] 07/22/2024 13:58:13 Tdap 5 [place] [facility] 07/22/2024 13:58:13 Past Encounters Encounter ID Performer Location Encounter Start Date Encounter Closed Date Diagnosis/Indication Diagnosis SNOMED-CT Code Diagnosis ICD10 Code Diagnosis IMO Codes Diagnosis Note [id number] MESFIN VANCE [facility] [address] [place] [address] 04/06/2019 11:37:41 04/07/2019 11:37:47 Screening mammography [id number] Z12.31 Patient is due for mammogram. Screening colonoscopy 44 2863070 Z12.11 Last colonoscop y was done 1997 for issues with hemorrhoid s. She is due for colonoscop y. denies blood in stool, diarrhea, constipati on. Pelvic mass 97384216 R19 .00 [facility] at [facility] that she had a large uterus. On exam today pelvic area is hardened and pain is elicited. Obtaining US nad sending patient to OBGYN as she will probably need surgery. Adult [facility] th examination 506822741 Z00.01 Patient presents to establish and get referral for surgery. [facility]. pap results not known yet. Patient would like hysterecto my for fibroids. Vitals WNL. On exam abdomen is distended and pelvic region is hardened. - continue eating healthy- set up appointmen t with obgyn- get US, mammogram, and colonoscop y done- f/u in 6 months pr prn On examina tion - cardiac murmur 150083146 R01.1 Patient has heart murmur on exam. She is unaware of anyone telling her in the past of heart murmur. She had an episode of her heart fluttering in her chest and causing chest pain. This happened one time. [id number] MESFIN BAILEY (GERIATRIC PSYCHIATRIST) [address] [place] [address] 04/22/2019 11:45:58 04/23/2019 14:47:59 Uterine leiomyoma 34795885 D25.9 F/u with US to further assess. Discussed different management options with patient including uterine fibroid embolizati on. Discussed case with Dr. Esquivel who also assessed patient. We recommende d pt go to [facility] for further management since they have assembler engine surgery and assembler engine oncology and can rule out any possibilit y of malignancy . Pt refuses to go to [place] and would like to have hysterecto my locally. Dr. Esquivel not willing to perform hysterecto my at [facility]. Referral to different [facility] for further management . Bulky uterus [id number] N 85.2 [id number] MESFIN VANCE [facility] [address] [place] [address] 11/29/2019 11:13:40 11/30/2019 10:07:46 Mammography abnormal 916389540 R92.8 6 month f/u Screening for malignant neoplasm of colon 266113726 Z12.11 had hemorrhoid s internal hemorrhoid surgery in 2012. Denies blood in stool, diarrhea, constipati on, FM HX. Adult heal th examination 285741221 Z00.01 patient has had partial hysterecto my. Needs labs.- continue eating healthy- surgeon f/u DEC 08- get US, mammogram, and colonoscop y done- f/u in 6 months pr prn [id number] MESFIN VANCE [facility] [address] [place] [address] 12/27/2019 09:46:55 12/28/2019 14:45:44 [id number] BRITTA RIZZO NP [facility] [address] [place] [address] 01/10/2020 13:43:32 01/11/2020 15:32:04 Screening for malignant neoplasm of colon 994624071 Z12.11 Body mass index 30+ - obesity 471958391 Z68.35 Hypothyroidism 43020889 E03.9 Managed in primary careStarte d on levothyrox ine x 1 week [id number] MESFIN VANCE [facility] [address] [place] [address] 01/17/2021 17:07:18 01/19/2021 10:18:26 Adult health examination 945208176 Z00.01 - patient has had partial hysterecto my (uterus and cervix, ovaries in place)2019 - colonoscop y normal 04/2020, due in 10 years- continue eating healthy- f/u in 6 months pr prn Obesity 596795587 E66.9 - discussed diet in detail- f/u in 6 months for A1C check, 6.1 today Prediabetes 177472953 R7 3.03 A1C 6.1 today, diet discussed [id number] MESFIN VANCE [facility] [address] [place] [address] 06/13/2021 17:03:50 06/15/2021 09:16:09 Hyperlipidemia 04515753 E78.5 Lipid panel : TC 276, LDL 195 (02/03/21) - STATIN STARTED but patient never picked it up. resent. spent time on importance of taking medication . Increased frequency of urination 728180670 R35.0 patient with A1C 6.1 and increased urinary frequency. will order labs. discussed diet Vitamin D deficiency 347 09265 E55.9 last Vitamin D 2020, she takes otc medication Anemia 925110359 D64.9 hx of anemia. still taking otc medication . will obtain labs Mammography abnormal 168 439065 R92.8 1. byrad 4 irregular shaped 12 mm right breast mass in the subareolar location, US guided biopsy recommende d (2019). biopsy done but need records 2. probable benign left breast masses 6 month f/u diagnostic mammogram and US recommende d. - patient given orders Postmenopausal state 764 03498 Z78.0 - start vitamin [id number] MESFIN VANCE [facility] [address] [place] [address] 10/26/2021 14:41:05 10/30/2021 09:31:06 Seen by nurse 172511433 Z76.89 [id number] MESFIN VANCE [facility] [address] [place] [address] 04/24/2023 09:27:21 04/24/2023 11:14:26 Dyspnea 568533184 R06.00 -dyspnea on exertion, no chest pain-Lungs clear on exam-Will check iron and TIBC Heart murmur 10279006 R0 1.1 -new heart murmur heard on exam-Denie s chest pain, but experience s dyspnea on exertion-W ill order TTE and pro-BNP to further evaluate Serum thyr oid stimulating hormone level outside reference range 246992137 R79.89 -No symptoms of hypothyroi dism-Curre ntly taking a complete thyroid supplement with iodine-Evan l repeat TSH labs Adult heal th examination 441221418 Z00.01 - patient has had partial hysterecto my (uterus and cervix, ovaries in place)2019 - colonoscop y normal 04/2020, due in 10 years- continue eating healthy- f/u in 6 months pr prn Blurring o f visual image 806272713 H53.8 will go get eye examlast eye exam 2 years ago Elevated blood-pressure reading without diagnosis of hypertension 443815691 R03.0 one month f/u-advise d pt to check blood pressure at home-discu ssed warning signs with pt to go to ED Mammography abnormal 168 074056 R92.8 1. byrad 4 irregular shaped 12 mm right breast mass in the subareolar location, US guided biopsy recommende d (2019). biopsy done but need records 2. probable benign left breast masses 6 month f/u diagnostic mammogram and US recommende d. - patient given orders [id number] Vimal hilliard MD [facility] [address] [place] [address] 08/28/2023 12:16:19 08/28/2023 14:07:56 Screening mammography 38486793 Z12.31 Patient is due for mammogram. complete laproscopi c hysterecto my [facility] at [facility] examC[facility] performedB reast education provided Essential hypertension 68086583 I10 addressed todaymedic ation sentf/u one month Obesity 896970633 E66.8 - discussed diet in detail- f/u in 6 months for A1C check, 6.1 today [id number] Carlo Deutsch MD [facility] [address] [place] [address] 06/30/2024 15:39:14 06/30/2024 16:28:55 Essential hypertension 89663207 I10 addressed Today in amlodipine dose has been increased. She is to check blood pressure at home and report back in 1 weekmedica tion sent General ex amination of patient 380526831 Z00.00 [id number] - labs today- colonoscop y normal 04/2020, due in 10 years- continue eating healthy- f/u in 6 months pr prn Obese class III 47709716 5 E66.813 0754871811 - discussed diet in detail- f/u in 6 months for A1C check, 6.1 today Active immunization 3387 9002 Z23 93492695 [id number] Carlo Deutsch MD [facility] [address] [place] [address] 07/02/2024 09:26:27 07/02/2024 10:38:30 [id number] Carlo Deutsch MD [facility] [address] [place] [address] 07/22/2024 13:48:02 07/22/2024 14:38:00 Active immunization 20044526 Z23 37016811 [id number] Carlo Deutsch MD [facility] [address] [place] [address] 10/28/2024 10:45:30 10/28/2024 11:23:50 Screening mammography 89165721 Z12.31 [id number] Patient is due for mammogram. Health Concerns Section Related Observation LastModified by Organization Detai ls LastModified Time None Recorded Concern Status LastModified by Organization Details LastModified Time None Recorded Advance Directives Directive N: Payers Insurance Date Sequence Insurance Name Policy Number Policy Balderas Covered Member ID [place] Member ID Guarantor Name 04/24/2023 1 [facility] (MEDICAID HMO) Amanda Flager [id number] Amanda Flager 04/24/2023 1 [facility] (MEDICAID HMO) [id number] Amanda T Flager [id number] Amanda Flager 05/06/2023 1 [place] [facility] Amanda T Flager [id number] Amanda Flager 04/24/2023 1 [facility] [id number] Amanda Flager [id number] Amanda Flager 04/24/2023 2 [facility] (MEDICARE REPLACEMENT/A DVANTAGE - HMO) Amanda Flager [id number] Amanda Flager 04/24/2023 2 [facility] (MEDICARE REPLACEMENT/A DVANTAGE - HMO) Amanda Flager [id number] Amanda Flager 10/25/2024 1 [employer] [id number] Amanda Flager [id number] Amanda Flager 09/22/2024 [facility] Amanda Flager [id number] Amanda Flager Notes Date Note Type Note Provider Name and Address Organization Details Recorded Time 08/28/2023 text/html 57 y/o F presents for ibccp breast and pelvic exam no complaints. LMP: 2020, Definate after hysterectomyLast Pap: does not knowLast mammogram:2020STI hx: deniesFam hx: denies breast, cervical, uterine, ovarian cancers MESFIN VANCE Attn: Accounting,[address] [place], [address], [facility] 08/28/2023 13:55:54 06/30/2024 text/html 58 Year old female is here for her wellness exam she states she takes her blood pressure medication every day. On chart review blood pressure is elevated today. She denies chest pain or shortness of b MESFIN VANCE Attn: Accounting,[address] [facility], [place], [address], [facility] 07/05/2024 14:38:13 10/28/2024 text/html here for ibccp breast examno breast complaintsdenies fam hx of breast cancerlast mammogram 11/2023 normalscheduled at [place] 02/2025 MESFIN VANCE Attn: Accounting,[address] [facility], [place], [address], [facility] 10/28/2024 11:20:43 OBGyn Episode No OBEpisode recorded.
--- OUTSIDE RECORDS SUMMARY | 2025-02-04 10:44 | XMS_ITS | Encounter Summary ---
Author Organization [facility] Address [address] [place] [address] Care Team Providers Care Er Nurse Name Role Phone Bobby Cook MD Primary Care Provider [phone] Encounter Details Date Type Department Care Team (Latest Contact Info) Description 01/27/2025 Scan [facility] INFO SRVCS Scanned, Doc Med Group Social History Tobacco Use Types Packs/Day Years Used Date Smoking Tobacco: Never Smokeless Tobacco: Never Alcohol Use Standard Drinks/Week Comments Not Currently 0 (1 standard drink = 0.6 oz pur e alcohol) PHQ-2 Answer Date Recorded Patient Health Questionnaire-2 Score 1 01/27/2025 Comments No Sex and Gender Information Value Date Recorded Sex Assigned at Female 01/27/2025 2:49 PM [employer]IONAL TELECOMMUNICATIONS SPECIALIST Legal Sex Female 11:16 PM REGIONAL TELECOMMUNICATIONS SPECIALIST Gender Identity Not on file Sexual Orientation Not on file documented as of this encounter Functional Status * Over the past 2 weeks, how often have you been bothered by any of the following problems? Question Answer Date of Assessment Author Status Little interest or pleasure in doing things Several days 01/27/2025 3:09 PM [employer]IONAL TELECOMMUNICATIONS SPECIALIST Milagros Moreno MA Acti ve Feeling down, depressed, or hopeless Not at all 01/27/2025 3:09 PM REGIONAL TELECOMMUNICATIONS SPECIALIST Milagros Moreno MA Active Patient Health Questionnaire-2 Score 1 01/27/2025 3:09 PM REGIONAL TELECOMMUNICATIONS SPECIALIST Milagros Moreno M A Active documented as of this encounter Plan of Treatment Upcoming Encounters Date Type Department Care Team ( Contact Info) Description 03/17/2025 9:00 AM REGIONAL TELECOMMUNICATIONS SPECIALIST [facility] [address] [place] [address] Henry Fox MD [address] [facility] [place] [address] [place] [phone] 03/17/2025 1:00 PM REGIONAL TELECOMMUNICATIONS SPECIALIST Office Visit [facility] - [place] [address] [place] [address] Bobby Cook MD [address] [place] [address] documented as of this encounter Visit Diagnoses Not on filedocumented in this encounter Care Teams Er Nurse Relationship Specialty Start Date End Date Bobby Cook MD [address] [place] [id number] PCP - General INTERNAL MEDICINE 01/27/25 documented as of this encounter
== END 2025-02-04 10:40 | disposition home or self-care (01) ==
LOC: ANHFOHIMG 10:42
PROVIDERS: PCP Internal Medicine; Visit Provider Internal Medicine
DX: Z12.31 Encounter for screening mammogram for malignant neoplasm of breast (principal)
CPT/HCPCS: 77063; 77067